=== PATIENT | female | born 1985 | race Caucasian/White ===

== ENCOUNTER 2016-11-21 02:36 | Inpatient (IN) ==
[2016-11-21] MEDS ORDERED: METHYLERGONOVINE 0.2 MG/ML INJECTION IM PRN (02:52)
[2016-11-21] MEDS ORDERED: LIDOCAINE 1% (10mg/ml) 2mL INJ PF SDV ID PRN (02:52)
[2016-11-21] MEDS ORDERED: CARBOPROST 250 MCG/ML INJECTION IM PRN (02:52)
[2016-11-21] MEDS ORDERED: CALCIUM CARBONATE Chewable 500mg TABLET PO PRN ×2 (02:52→09:23)
[2016-11-21] MEDS ORDERED: ACETAMINOPHEN 500 MG TABLET PO PRN ×2 (02:52→09:23)
[2016-11-21] MEDS ORDERED: MAG-AL + SIM ORAL LIQUID 30ml PO PRN ×2 (02:52→09:23)
[2016-11-21] MEDS: LR 1,000 ML IV PRN ×2 (03:05→07:00)
[2016-11-21] MEDS ORDERED: OXYTOCIN DRIP 30 UNIT/500 ML ML IV SCH (09:23)
[2016-11-21] MEDS ORDERED: DiphenhydrAMINE 25 MG CAPSULE PO PRN (09:23)
[2016-11-21] MEDS ORDERED: SALINE FLUSH 10ml SYRINGE IVF PRN (09:23)
[2016-11-21] MEDS ORDERED: HYDROCORTISONE 2.5% CREAM 30gm RECTALLY PRN (09:23)
[2016-11-21] MEDS: IBUPROFEN 800 MG TABLET PO PRN ×2 (10:14→19:37)
--- NOTE | 2016-11-21 10:33 | Anesthesia Postoperative Note ---
- Date and Time Date: 11/21/16 Time: 10:32 - Status Patient Participated in Evaluation: Patient Participated in Person Respiratory Function: Airway Patent, Regular Respirations Cardiovascular Function: Regular Pulse Mental Status: Alert and Oriented Pain Intensity: 0 Hydration: Taking PO Fluids Complications During Recover: None Apparent - Follow-Up Instructions Instructions: Per Surgeon
[2016-11-21] MEDS: HYDROCODONE/APAP 5mg/325mg TABLET PO PRN ×3 (13:20→21:19)
[2016-11-21 13:41] VITALS: RESP 16
[2016-11-21 13:45] VITALS: BMI 32.1
--- NOTE | 2016-11-21 14:59 | Labor and Delivery Note ---
DATE 11/21/2016 Ms. Bell progressed very well in first stage of labor. She began to push with excellent effort to complete and +2 presentation. She pushed for just over an hour. She delivered the head in the OP presentation and slightly asynclitic. I was concerned about possible shoulder dystocia, so I had her keep pushing. Over the course of two further pushes, she delivered the baby in total. After delivery of the head there was a loose nuchal cord I slipped over the baby's head, it was x1, and reduced easily. After delivery the baby, he was bulb suctioned and placed on mother's abdomen for care. After a little over two minutes the cord was doubly clamped. It was cut by the baby's father, Jc. This is a liveborn male with Apgars of 8/9/10. He weighed 8 pounds, 8.7 ounces. The placenta subsequently delivered spontaneously, intact. It had a normal configuration and normal-appearing three-vessel cord. There was a superficial midline laceration that was hemostatic and therefore not repaired. Total blood loss was approximately 400 mL. At the time of this dictation mother and baby are doing well. [facility]
[2016-11-21] MEDS ORDERED: SUFentanil 50 MCG, ROPIVACAINE 0.2% 2MG/ML INJ 40 MG in NS 100 ML IVP ONE (15:12)
[2016-11-22] MEDS: HYDROCODONE/APAP 5mg/325mg TABLET PO PRN ×2 (02:00→10:04)
[2016-11-22 07:44] VITALS: BP 114/72; PULSE 74; TEMP 98.4; O2SAT 97
[2016-11-22] MEDS: IBUPROFEN 800 MG TABLET PO PRN (08:13)
[2016-11-22] MEDS ORDERED: GENTAMICIN 0.3% EYE DROPS 15ml EACH EYE SCH (08:15)
--- NOTE | 2016-11-22 08:19 | OB/GYN Progress Note ---
OB-PP Progress Note - General PPD1 - Subjective Date: 11/22/16 Lochia: Minimal Pain: contolled (Using L[place]ita and Ibuprofen.) Voiding: voiding Nausea or Vomiting Present: No Subjective Comments: Patient reports this a.m. waking up with bilat. eye discharge and was crusty. Had to use warm water to wipe the drainage off. concerned that she has pink eye - Objective Vital Signs: Last Vital Signs Temp 98.4 F 11/22/16 07:35 Pulse 74 11/22/16 07:35 Resp 16 11/22/16 07:35 BP 114/72 11/22/16 07:35 Pulse Ox 97 11/22/16 07:35 Urine Output: good General: alert and oriented General: On exam redness noted to eyes bilat. sl. amount of drainage noted. Abdomen: fundus firm Extremities: non-tender Edema: none - Assessment Assessment: - Plan Plan: routine care, discharge home
--- NOTE | 2016-11-22 08:23 | Discharge Instructions ---
Discharge Plan - Med Rec/Dispo Prescriptions: New Hydrocodone/APAP 5/325 [[place] 5/325] 1 - 2 tab PO Q4H PRN #20 tablet PRN Reason: Pain Ibuprofen [Motrin] 800 mg PO Q8H PRN #50 tablet PRN Reason: Pain Gentamicin Eye Drops [Garamycin O/S] 2 drop EACH EYE Q4HR bottle Continue Vitamins Tylenol Stool Softener Discharge Instructions/Outpatient Orders: Final Provider Discharge Instructions Location: Determined By Patient - Disposition 01 Discharged Home, Self-Care
[2016-11-22] MEDS ORDERED: DOCUSATE CALCIUM 240 MG CAPSULE PO SCH (09:00)
== END 2016-11-22 13:45 | disposition home or self-care (01) | DRG 775 ==
LOC: OBOBS 02:36 → MC 02:38
PROVIDERS: ADMIT Obstetrics & Gynecology; ATTEND Obstetrics & Gynecology